=== PATIENT | male | born 2000 | race Caucasian/White ===

== ENCOUNTER → 2024-02-21 11:41 | Outpatient (BNVA) | payer OTHER, SELFPAY | DX: K21.9 Gastro-esophageal reflux disease without esophagitis (principal) | CPT/HCPCS: 80053; 86677 ==

== ENCOUNTER 2024-08-06 16:18 | Outpatient (CLI) | payer OTHER, SELFPAY ==
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
== END 2024-08-06 16:19 | disposition home or self-care (01) ==
DX: R10.31 Right lower quadrant pain (principal); K21.9 Gastro-esophageal reflux disease without esophagitis; F41.9 Anxiety disorder, unspecified
CPT/HCPCS: 74018

== ENCOUNTER 2025-03-06 21:21 | Emergency (ER) | payer OTHER, SELFPAY ==
[2025-03-06 21:25] VITALS: BP 132/81; PULSE 68; RESP 16; TEMP 36.6; O2SAT 100; BMI 21.9
--- OUTSIDE RECORDS SUMMARY | 2025-03-06 21:34 | XMS_ITS | Encounter Summary ---
Author Organization [facility] Address [address] [place] [address] Care Team Providers Care Clothing Supervisor Name Role Phone Aleks Musa MD Primary Care Provider Un available Encounter Details Date Type Department Care Team (Latest Contact Info) Description 01/27/2002 Outpatient Historical [facility] [address] [place] [phone] Rosalinda Villarreal MD NO ADDRESS ON FILE CROUP (Primary Dx); IMPACTED CERUMEN Social History Tobacco Use Types Packs/Day Years Used Date Smoking Tobacco: Never Assessed Sex and Gender Information Value Date Recorded Sex Assigned at Not on file Legal 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
--- OUTSIDE RECORDS SUMMARY | 2025-03-06 21:35 | XMS_ITS | Encounter Summary ---
Author Organization [facility] Address [address] [place] [address] Care Team Providers Care Production Shift Supervisor Name Role Phone Aleks Musa MD Primary Care Provider Un available Encounter Details Date Type Department Care Team (Latest Contact Info) Description 05/03/2004 Outpatient Historical [facility], N[facility] [address] [place] 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
--- OUTSIDE RECORDS SUMMARY | 2025-03-06 21:35 | XMS_ITS | Encounter Summary ---
Author Organization [facility] Address [address] [place] [address] Care Team Providers Care Storage Facility Rental Clerk Name Role Phone Aleks Musa MD Primary Care Provider Un available Encounter Details Date Type Department Care Team (Latest Contact Info) Description 05/14/2003 Outpatient Historical [facility] [address] [place] [phone] Aleks Musa MD NO ADDRESS ON FILE OTITIS MEDIA NOS (Primary Dx) Social History Tobacco Use Types Packs/Day Years Used Date Smoking Tobacco: Never Assessed Sex and Gender Information Value Date Recorded Sex Assigned at Not on file 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
--- OUTSIDE RECORDS SUMMARY | 2025-03-06 21:35 | XMS_ITS | Encounter Summary ---
Author Organization [facility] Address [address] [place] [address] Care Team Providers Care Rehabilitation Teacher Name Role Phone Aleks Musa MD Primary Care Provider Un available Encounter Details Date Type Department Care Team (Latest Contact Info) Description 08/02/[address] Outpatient [address] 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
--- OUTSIDE RECORDS SUMMARY | 2025-03-06 21:35 | XMS_ITS | Encounter Summary ---
Author Organization [facility] Address [address] [place] [address] Care Team Providers Care Rotor Pilot Name Role Phone Aleks Musa MD Primary Care Provider Un available Encounter Details Date Type Department Care Team (Latest Contact Info) Description 08/04/2002 Outpatient Historical [facility] Imaging Services-[facility] [address] [place] [phone] Florentin Munoz MD NO ADDRESS ON FILE COUGH (Primary Dx) Social History Tobacco Use Types Packs/Day Years Used Date Smoking Tobacco: Never Assessed Sex and Gender Information Value Date Recorded Sex Assigned at Not on file Legal Sex Male 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
--- OUTSIDE RECORDS SUMMARY | 2025-03-06 21:35 | XMS_ITS | Encounter Summary ---
Author Organization [facility] Address [address] [place] [address] Care Team Providers Care Canvas Baster Name Role Phone Aleks Musa MD Primary Care Provider Un available Encounter Details Date Type Department Care Team (Latest Contact Info) Description 03/26/2003 Outpatient Historical 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
--- OUTSIDE RECORDS SUMMARY | 2025-03-06 21:35 | XMS_ITS | Encounter Summary ---
Author Organization [facility] Address [address] [place] [address] Care Team Providers Care Chemistry Teacher Name Role Phone Aleks Musa MD Primary Care Provider Un available Encounter Details Date Type Department Care Team (Latest Contact Info) Description 07/26/2002 Outpatient Historical [facility] Urgent Care[facility] [address] [place] [phone] Buddy Quintero MD NO ADDRESS ON FILE FEVER (Primary Dx) Social History Tobacco Use Types Packs/Day Years Used Date Smoking Tobacco: Never Assessed Sex and Gender Information Value Date Recorded Sex Assigned at Not on file 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
--- OUTSIDE RECORDS SUMMARY | 2025-03-06 21:35 | XMS_ITS | Encounter Summary ---
Author Organization [facility] Address [address] [place] [address] Care Team Providers Care Taxi Dancer Name Role Phone Aleks Musa MD Primary Care Provider Un available Encounter Details Date Type Department Care Team (Latest Contact Info) Description 12/08/2003 Outpatient Historical [facility] [address] [place] [phone] Aleks Musa MD NO ADDRESS ON FILE COUGH (Primary Dx); OTALGIA NOS Social History Tobacco Use Types Packs/Day Years Used Date Smoking Tobacco: Never Assessed Sex and Gender Information Value Date Recorded Sex Assigned at Not on file Legal 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
--- OUTSIDE RECORDS SUMMARY | 2025-03-06 21:35 | XMS_ITS | Encounter Summary ---
Author Organization [facility] Address [address] [place] [address] Care Team Providers Care Inspector Hairspring Truing Name Role Phone Aleks Musa MD Primary Care Provider Un available Encounter Details Date Type Department Care Team (Latest Contact Info) Description 2001 Outpatient Historical [facility] [address] [place] [phone] Aleks Musa MD NO ADDRESS ON FILE VACCINE FOR DTP (Primary Dx); VACCINE FOR STREP PNEUMONIAE; CONVULSIONS, OTHER ([facility]) Social History Tobacco Use Types Packs/Day Years Used Date Smoking Tobacco: Never Assessed Sex and Gender Information Value Date Recorded Sex Assigned at Not on file 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 Gender Identity Not on file Sexual Orientation Not on file documented as of this encounter Plan of Treatment Not on file documented as of this encounter Visit Diagnoses Diagnosis Need for prophylactic vaccination with combined [id number] (DTP) vaccine- Primary Need for prophylactic vaccination against Streptococcus pneumoniae (pneumococcus) Need for prophylactic vaccination against streptococcus pneumoniae (pneumococcus) Other convulsions documented in this encounter Care Teams Inspector Hairspring Truing Relationship Specialty Start Date End Date Aleks Musa MD NO ADDRESS ON FILE PCP - General 11/05/02 documented as of this encounter
--- OUTSIDE RECORDS SUMMARY | 2025-03-06 21:35 | XMS_ITS | Encounter Summary ---
Author Organization [facility] Address [address] [place] [address] Care Team Providers Care Associate Professor Of Education Name Role Phone Aleks Musa MD Primary Care Provider Un available Encounter Details Date Type Department Care Team (Latest Contact Info) Description 01/28/2005 Outpatient Historical [facility] Ear, Nose and Throat [address] [place] 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
--- OUTSIDE RECORDS SUMMARY | 2025-03-06 21:35 | XMS_ITS | Encounter Summary ---
Author Organization [facility] Address [address] [place] [address] Care Team Providers Care Culinary Arts Instructor Name Role Phone Aleks Musa MD Primary Care Provider Un available Encounter Details Date Type Department Care Team (Latest Contact Info) Description 2001 Outpatient Historical [facility] [address] [place] [phone] Florentin Munoz MD NO ADDRESS ON FILE OTITIS MEDIA NOS (Primary Dx) Social History Tobacco Use Types Packs/Day Years Used Date Smoking Tobacco: Never Assessed Sex and Gender Information Value Date Recorded Sex Assigned at Not on file Legal 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
--- OUTSIDE RECORDS SUMMARY | 2025-03-06 21:35 | XMS_ITS | Encounter Summary ---
Author Organization [facility] Address [address] [place] [address] Care Team Providers Care Accounts Payable Analyst Name Role Phone Aleks Musa MD Primary Care Provider Un available Encounter Details Date Type Department Care Team (Latest Contact Info) Description 05/07/2004 Outpatient Historical [facility] [address] [place] [phone] Aleks Musa MD NO ADDRESS ON FILE PNEUMONIA, ORGANISM NOS (Primary Dx) Social History Tobacco Use Types Packs/Day Years Used Date Smoking Tobacco: Never Assessed Sex and Gender Information Value Date Recorded Sex Assigned at Not on file Legal Sex Male 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
--- OUTSIDE RECORDS SUMMARY | 2025-03-06 21:35 | XMS_ITS | Encounter Summary ---
Author Organization [facility] Address [address] [place] [address] Care Team Providers Care Social Services Counselor Name Role Phone Aleks Musa MD Primary Care Provider Un available Encounter Details Date Type Department Care Team (Latest Contact Info) Description [address] [facility] [address] [place] [phone] Aleks Musa MD NO ADDRESS ON FILE VACCINE FOR DTP (Primary Dx); VACCINE FOR DISEASE NEC; Vaccine for poliomyelitis Social History Tobacco Use Types Packs/Day Years Used Date Smoking Tobacco: Never Assessed Sex and Gender Information Value Date Recorded Sex Assigned at Not on file Legal Sex Male 4:40 AM ALLIED HEALTH PROFESSIONAL Gender Identity Not on file Sexual Orientation Not on file documented as of this encounter Plan of Treatment Not on file documented as of this encounter Visit Diagnoses Diagnosis Need for prophylactic vaccination with combined [id number]-[id number] (DTP) vaccine- Primary Need for prophylactic vaccination and inoculation against other specified disease Vaccine for poliomyelitis Need for prophylactic vaccination and inoculation against poliomyelitis documented in this encounter Care Teams Social Services Counselor Relationship Specialty Start Date End Date Aleks Musa MD NO ADDRESS ON FILE PCP - General 11/05/02 documented as of this encounter
--- OUTSIDE RECORDS SUMMARY | 2025-03-06 21:35 | XMS_ITS | Encounter Summary ---
Author Organization 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
--- OUTSIDE RECORDS SUMMARY | 2025-03-06 21:35 | XMS_ITS | Encounter Summary ---
Author Organization [facility] Address [address] [place] [address] Care Team Providers Care Parcel Post Clerk Name Role Phone Aleks Musa MD Primary Care Provider Un available Encounter Details Date Type Department Care Team (Latest Contact Info) Description 02/20/2004 Outpatient Historical [facility] [address] [place] [phone] Aleks Musa MD NO ADDRESS ON FILE Routine child health exam (Primary Dx) Social History Tobacco Use Types Packs/Day Years Used Date Smoking Tobacco: Never Assessed Sex and Gender Information Value Date Recorded Sex Assigned at Not on file Legal Sex Male 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
--- OUTSIDE RECORDS SUMMARY | 2025-03-06 21:35 | XMS_ITS | Encounter Summary ---
Author Organization [facility] Address [address] [place] [address] Care Team Providers Care Cytology Laboratory Manager Name Role Phone Aleks Musa MD Primary Care Provider Un available Encounter Details Date Type Department Care Team (Latest Contact Info) Description 2001 Outpatient Historical 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
--- OUTSIDE RECORDS SUMMARY | 2025-03-06 21:35 | XMS_ITS | Encounter Summary ---
Author Organization [facility] Address [address] [place] [address] Care Team Providers Care Park Guard Name Role Phone Aleks Musa MD Primary Care Provider Un available Encounter Details Date Type Department Care Team (Latest Contact Info) Description 02/23/2005 Outpatient Historical [facility] [address] [place] [phone] Aleks Musa MD NO ADDRESS ON FILE Routine child health exam (Primary Dx) Social History Tobacco Use Types Packs/Day Years Used Date Smoking Tobacco: Never Assessed Sex and Gender Information Value Date Recorded Sex Assigned at Not on file Legal Sex Male 4:40 AM RADARMAN Gender Identity Not on file Sexual Orientation Not on file documented as of this encounter Plan of Treatment Not on file documented as of this encounter Visit Diagnoses Diagnosis Routine child health exam- Primary Routine or child health check documented in this encounter Care Teams Park Guard Relationship Specialty Start Date End Date Aleks Musa MD NO ADDRESS ON FILE PCP - General 11/05/02 documented as of this encounter
--- OUTSIDE RECORDS SUMMARY | 2025-03-06 21:35 | XMS_ITS | Encounter Summary ---
Author Organization [facility] Address [address] [place] [address] Care Team Providers Care Licensed Therapist Name Role Phone Aleks Musa MD Primary Care Provider Un available Encounter Details Date Type Department Care Team (Latest Contact Info) Description 01/14/2002 Outpatient Historical [facility] [address] [place] [phone] Aleks Musa MD NO ADDRESS ON FILE OTITIS MEDIA NOS (Primary Dx) Social History Tobacco Use Types Packs/Day Years Used Date Smoking Tobacco: Never Assessed Sex and Gender Information Value Date Recorded Sex Assigned at Not on file Legal 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
--- OUTSIDE RECORDS SUMMARY | 2025-03-06 21:35 | XMS_ITS | Encounter Summary ---
Author Organization [facility] Address [address] [place] [address] Care Team Providers Care Die Turner Name Role Phone Aleks Musa MD Primary Care Provider Un available Encounter Details Date Type Department Care Team (Latest Contact Info) Description 05/19/2004 Outpatient Historical [facility] [address] [place] [phone] Aleks Musa MD NO ADDRESS ON FILE BRONCHITIS NOS (Primary Dx); ACUTE PHARYNGITIS Social History Tobacco Use Types Packs/Day Years Used Date Smoking Tobacco: Never Assessed Sex and Gender Information Value Date Recorded Sex Assigned at Not on file Legal Sex Male 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
--- OUTSIDE RECORDS SUMMARY | 2025-03-06 21:35 | XMS_ITS | Encounter Summary ---
Author Organization [facility] Address [address] [place] [address] Care Team Providers Care Residential Living Assistant Name Role Phone Aleks Musa MD Primary Care Provider Un available Encounter Details Date Type Department Care Team (Latest Contact Info) Description 2001 Outpatient Historical [facility] [address] [place] [phone] Aleks Musa MD NO ADDRESS ON FILE WHOOPING COUGH NOS (Primary Dx); CONVULSIONS, OTHER ([facility]) Social History Tobacco Use Types Packs/Day Years Used Date Smoking Tobacco: Never Assessed Sex and Gender Information Value Date Recorded Sex Assigned at Not on file Legal Sex Male 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
--- OUTSIDE RECORDS SUMMARY | 2025-03-06 21:35 | XMS_ITS | Encounter Summary ---
Author Organization [facility] Address [address] [place] [address] Care Team Providers Care Golf Club Head Inspector Name Role Phone Aleks Musa MD Primary Care Provider Un available Encounter Details Date Type Department Care Team (Latest Contact Info) Description 10/21/2003 Outpatient Historical [facility] Th[facility] [address] [place] [address] [place] [phone] Clovis Sidhu MD NO ADDRESS ON FILE Dysfunct eustachian tube (Primary Dx) Social History Tobacco Use Types Packs/Day Years Used Date Smoking Tobacco: Never Assessed Sex and Gender Information Value Date Recorded Sex Assigned at Not on file Legal Sex Male 4:40 AM UTILIZATION SPECIALIST Gender Identity Not on file Sexual Orientation Not on file documented as of this encounter Plan of Treatment Not on file documented as of this encounter Visit Diagnoses Diagnosis Dysfunct eustachian tube- Primary Dysfunction of Eustachian tube documented in this encounter Care Teams Golf Club Head Inspector Relationship Specialty Start Date End Date Aleks Musa MD NO ADDRESS ON FILE PCP - General 11/05/02 documented as of this encounter
--- OUTSIDE RECORDS SUMMARY | 2025-03-06 21:35 | XMS_ITS | Encounter Summary ---
Author Organization [facility] Address [address] [place] [address] Care Team Providers Care Counter Attendant Name Role Phone Aleks Musa MD Primary Care Provider Un available Encounter Details Date Type Department Care Team (Latest Contact Info) Description 07/18/2003 Outpatient Historical [facility] Op[facility] [address] [place] [address] Morris Davila MD [address] [place] [address] Accommodative esotropia (Primary Dx) Social History Tobacco Use Types Packs/Day Years Used Date Smoking Tobacco: Never Assessed Sex and Gender Information Value Date Recorded Sex Assigned at Not on file Legal Sex Male 4:40 AM LICENSED PLUMBER Gender Identity Not on file Sexual Orientation Not on file documented as of this encounter Plan of Treatment Not on file documented as of this encounter Visit Diagnoses Diagnosis Accommodative esotropia- Primary Accommodative component in esotropia documented in this encounter Care Teams Counter Attendant Relationship Specialty Start Date End Date Aleks Musa MD NO ADDRESS ON FILE PCP - General 11/05/02 documented as of this encounter
--- OUTSIDE RECORDS SUMMARY | 2025-03-06 21:35 | XMS_ITS | Encounter Summary ---
Author Organization [facility] Address [address] [place] [address] Care Team Providers Care Political Research Scientist Name Role Phone Aleks Musa MD Primary Care Provider Un available Encounter Details Date Type Department Care Team (Latest Contact Info) Description 08/25/2004 Outpatient Historical [facility] [address] [place] [phone] Nitin Ferrell MD NO ADDRESS ON FILE UNSPECIFIED VIRAL INFECTION (Primary Dx) Social History Tobacco Use Types Packs/Day Years Used Date Smoking Tobacco: Never Assessed Sex and Gender Information Value Date Recorded Sex Assigned at Not on file Legal Sex Male 4:40 AM DIGITAL ACCOUNT MANAGER Gender Identity Not on file Sexual Orientation Not on file documented as of this encounter Plan of Treatment Not on file documented as of this encounter Visit Diagnoses Diagnosis Unspecified viral infection, in conditions classified elsewhere and of unspecified site- Primary documented in this encounter Care Teams Political Research Scientist Relationship Specialty Start Date End Date Aleks Musa MD NO ADDRESS ON FILE PCP - General 11/05/02 documented as of this encounter
--- OUTSIDE RECORDS SUMMARY | 2025-03-06 21:35 | XMS_ITS | Encounter Summary ---
Author Organization [facility] Address [address] [place] [address] Care Team Providers Care Chain Repairer Name Role Phone Aleks Musa MD Primary Care Provider Un available Encounter Details Date Type Department Care Team (Latest Contact Info) Description 2001 Outpatient Historical [facility] [address] [place] [phone] Abhijit Obrien MD NO ADDRESS ON FILE ACUTE BRONCHIOLITIS/RESP SYNC VIRUS (Primary Dx) Social History Tobacco Use Types Packs/Day Years Used Date Smoking Tobacco: Never Assessed Sex and Gender Information Value Date Recorded Sex Assigned at Not on file Legal Sex Male 4:40 AM MANAGER BUDGET Gender Identity Not on file Sexual Orientation Not on file documented as of this encounter Plan of Treatment Not on file documented as of this encounter Visit Diagnoses Diagnosis Acute bronchiolitis due to respiratory syncytial virus (RSV)- Primary documented in this encounter Care Teams Chain Repairer Relationship Specialty Start Date End Date Aleks Musa MD NO ADDRESS ON FILE PCP - General 11/05/02 documented as of this encounter
--- OUTSIDE RECORDS SUMMARY | 2025-03-06 21:35 | XMS_ITS | Encounter Summary ---
Author Organization [facility] Address [address] [facility] Attn: Epic Prelude ADT [place] [phone] Care Team Providers Care Junior Underwriter Name Role Phone Aleks Musa MD Primary Care Provider Un available Encounter Details Date Type Department Care Team (Late st Contact Info) Description 2001 Inpatient Historical Aleks Musa MD NO ADDRESS ON FILE Social History Tobacco Use Types Packs/Day Years Used Date Smoking Tobacco: Never Assessed Sex and Gender Information Value Date Recorded Sex Assigned at Not on file Legal Sex Male 4:40 AM RAP ARTIST Gender Identity Not on file Sexual Orientation Not on file documented as of this encounter Plan of Treatment Not on file documented as of this encounter Visit Diagnoses Not on filedocumented in this encounter Care Teams Junior Underwriter Relationship Specialty Start Date End Date Aleks Musa MD NO ADDRESS ON FILE PCP - General 11/05/02 documented as of this encounter
--- OUTSIDE RECORDS SUMMARY | 2025-03-06 21:35 | XMS_ITS | Encounter Summary ---
Author Organization [facility] Address [address] [facility] Attn: Epic Prelude ADT [place] [address] Care Team Providers Care Assembler Utility Buildings Name Role Phone Aleks Musa MD Primary Care Provider Un available Encounter Details Date Type Department Care Team (Late st Contact Info) Description 2001 Outpatient Historical Aleks Musa MD NO ADDRESS ON FILE Social History Tobacco Use Types Packs/Day Years Used Date Smoking Tobacco: Never Assessed Sex and Gender Information Value Date Recorded Sex Assigned at Not on file Legal Sex Male 4:40 AM COAL CAGER Gender Identity Not on file Sexual Orientation Not on file documented as of this encounter Plan of Treatment Not on file documented as of this encounter Visit Diagnoses Not on filedocumented in this encounter Care Teams Assembler Utility Buildings Relationship Specialty Start Date End Date Aleks Musa MD NO ADDRESS ON FILE PCP - General 11/05/02 documented as of this encounter
--- OUTSIDE RECORDS SUMMARY | 2025-03-06 21:35 | XMS_ITS | Encounter Summary ---
Author Organization [facility] Address [address] [place] [address] Care Team Providers Care Plant Pathology Teacher Name Role Phone Aleks Musa MD Primary Care Provider Un available Encounter Details Date Type Department Care Team (Late st Contact Info) Description 01/28/2005 Outpatient Historical [facility] Ear, Nose and Throat [address] [place] [phone] Social History Tobacco Use Types Packs/Day Years Used Date Smoking Tobacco: Never Assessed Sex and Gender Information Value Date Recorded Sex Assigned at Not on file Legal Sex Male 4:40 AM STEEL GRINDER Gender Identity Not on file Sexual Orientation Not on file documented as of this encounter Plan of Treatment Not on file documented as of this encounter Visit Diagnoses Not on filedocumented in this encounter Care Teams Plant Pathology Teacher Relationship Specialty Start Date End Date Aleks Musa MD NO ADDRESS ON FILE PCP - General 11/05/02 documented as of this encounter
--- OUTSIDE RECORDS SUMMARY | 2025-03-06 21:35 | XMS_ITS | Encounter Summary ---
Author Organization [facility] Address [address] [place] [address] Care Team Providers Care Setter Cold Rolling Machine Name Role Phone Aleks Musa MD Primary Care Provider Un available Encounter Details Date Type Department Care Team (Latest Contact Info) Description 2001 Outpatient Historical [facility] [address] [place] [phone] Aleks Musa MD NO ADDRESS ON FILE VACCINE FOR DTP (Primary Dx); VACCINE FOR DISEASE NEC; Vaccine for poliomyelitis Social History Tobacco Use Types Packs/Day Years Used Date Smoking Tobacco: Never Assessed Sex and Gender Information Value Date Recorded Sex Assigned at Not on file Legal Sex Male 4:40 AM CLINICAL SYSTEMS ANALYST Gender Identity Not on file Sexual Orientation Not on file documented as of this encounter Plan of Treatment Not on file documented as of this encounter Visit Diagnoses Diagnosis Need for prophylactic vaccination with combined [id number] (DTP) vaccine- Primary Need for prophylactic vaccination and inoculation against other specified disease Vaccine for poliomyelitis Need for prophylactic vaccination and inoculation against poliomyelitis documented in this encounter Care Teams Setter Cold Rolling Machine Relationship Specialty Start Date End Date Aleks Musa MD NO ADDRESS ON FILE PCP - General 11/05/02 documented as of this encounter
--- OUTSIDE RECORDS SUMMARY | 2025-03-06 21:35 | XMS_ITS | Encounter Summary ---
Author Organization [facility] Address [address] [place] [address] Care Team Providers Care Tracer Lathe Set Up Operator Name Role Phone Aleks Musa MD Primary Care Provider Un available Encounter Details Date Type Department Care Team (Latest Contact Info) Description 04/22/2003 Outpatient Historical [facility] Ear, Nose and Throat [address] [place] [address] [place] [phone] Clovis Sidhu MD NO ADDRESS ON FILE Dysfunct eustachian tube (Primary Dx) Social History Tobacco Use Types Packs/Day Years Used Date Smoking Tobacco: Never Assessed Sex and Gender Information Value Date Recorded Sex Assigned at Not on file Legal Sex Male 4:40 AM CARPENTER APPRENTICE Gender Identity Not on file Sexual Orientation Not on file documented as of this encounter Plan of Treatment Not on file documented as of this encounter Visit Diagnoses Diagnosis Dysfunct eustachian tube- Primary Dysfunction of Eustachian tube documented in this encounter Care Teams Tracer Lathe Set Up Operator Relationship Specialty Start Date End Date Aleks Musa MD NO ADDRESS ON FILE PCP - General 11/05/02 documented as of this encounter
--- OUTSIDE RECORDS SUMMARY | 2025-03-06 21:35 | XMS_ITS | Encounter Summary ---
Author Organization [facility] Address [address] [place] [address] Care Team Providers Care Soil Sampler Name Role Phone Aleks Musa MD Primary Care Provider Un available Encounter Details Date Type Department Care Team (Latest Contact Info) Description 2001 Outpatient Historical [facility] [address] [place] [phone] Aleks Musa MD NO ADDRESS ON FILE WHOOPING COUGH NOS (Primary Dx); CONVULSIONS, OTHER ([facility] Social History Tobacco Use Types Packs/Day Years Used Date Smoking Tobacco: Never Assessed Sex and Gender Information Value Date Recorded Sex Assigned at Not on file Legal Sex Male 4:40 AM TALENT MANAGEMENT SPECIALIST Gender Identity Not on file Sexual Orientation Not on file documented as of this encounter Plan of Treatment Not on file documented as of this encounter Visit Diagnoses Diagnosis Whooping cough, unspecified organism- Primary Other convulsions documented in this encounter Care Teams Soil Sampler Relationship Specialty Start Date End Date Aleks Musa MD NO ADDRESS ON FILE PCP - General 11/05/02 documented as of this encounter
--- OUTSIDE RECORDS SUMMARY | 2025-03-06 21:35 | XMS_ITS | Encounter Summary ---
Author Organization [facility] Address [address] [place] [address] Care Team Providers Care State Epidemiologist Name Role Phone Aleks Musa MD Primary Care Provider Un available Encounter Details Date Type Department Care Team (Latest Contact Info) Description 2001 Outpatient Historical [facility] [address] [place] [phone] Florentin Munoz MD NO ADDRESS ON FILE OTALGIA NOS (Primary Dx); VACCINE FOR DISEASE NEC Social History Tobacco Use Types Packs/Day Years Used Date Smoking Tobacco: Never Assessed Sex and Gender Information Value Date Recorded Sex Assigned at Not on file Legal Sex Male 4:40 AM PLASTIC SURGERY MANAGER Gender Identity Not on file Sexual Orientation Not on file documented as of this encounter Plan of Treatment Not on file documented as of this encounter Visit Diagnoses Diagnosis Otalgia, unspecified- Primary Need for prophylactic vaccination and inoculation against other specified disease documented in this encounter Care Teams State Epidemiologist Relationship Specialty Start Date End Date Aleks Musa MD NO ADDRESS ON FILE PCP - General 11/05/02 documented as of this encounter
--- OUTSIDE RECORDS SUMMARY | 2025-03-06 21:35 | XMS_ITS | Encounter Summary ---
Author Organization [facility] Address [address] [facility] Attn: Epic Prelude ADT [place] [address] Care Team Providers Care Tack Cutter Name Role Phone Aleks Musa MD Primary [...] on file Legal Sex Male 4:40 AM MANUFACTURING SUPPORT ENGINEER Gender Identity Not on file Sexual Orientation Not on file documented as of this encounter Plan of Treatment Not on file documented as of this encounter Visit Diagnoses Not on filedocumented in this encounter Care Teams Tack Cutter Relationship Specialty Start Date End Date Aleks Musa MD NO ADDRESS ON FILE PCP - General 11/05/02 documented as of this encounter
--- OUTSIDE RECORDS SUMMARY | 2025-03-06 21:35 | XMS_ITS | Encounter Summary ---
Author Organization [facility] Address [address] [place] [address] Care Team Providers Care Curriculum Designer Name Role Phone Aleks Musa MD Primary Care Provider Un available Encounter Details Date Type Department Care Team (Latest Contact Info) Description 05/20/2004 Outpatient Historical [facility] Ophthalmology [address] [place] [address] Morris Davila MD [address] [place] [address] Accommodative esotropia (Primary Dx) Social History Tobacco Use Types Packs/Day Years Used Date Smoking Tobacco: Never Assessed Sex and Gender Information Value Date Recorded Sex Assigned at Not on file Legal Sex Male 4:40 AM DIGITAL CONTENT PRODUCER Gender Identity Not on file Sexual Orientation Not on file documented as of this encounter Plan of Treatment Not on file documented as of this encounter Visit Diagnoses Diagnosis Accommodative esotropia- Primary Accommodative component in esotropia documented in this encounter Care Teams Curriculum Designer Relationship Specialty Start Date End Date Aleks Musa MD NO ADDRESS ON FILE PCP - General 11/05/02 documented as of this encounter
--- OUTSIDE RECORDS SUMMARY | 2025-03-06 21:35 | XMS_ITS | Encounter Summary ---
Author Organization [facility] Address [address] [place] [address] Care Team Providers Care Delivery Driver Assistant Name Role Phone Aleks Musa MD Primary Care Provider Un available Encounter Details Date Type Department Care Team (Latest Contact Info) Description 08/04/2002 Outpatient Historical [facility] Florentin Munoz MD NO ADDRESS ON FILE ACUTE URI NOS (Primary Dx) Social History Tobacco Use Types Packs/Day Years Used Date Smoking Tobacco: Never Assessed Sex and Gender Information Value Date Recorded Sex Assigned at Not on file Legal Sex Male 4:40 AM INFORMATION TECHNOLOGY ARCHITECT Gender Identity Not on file Sexual Orientation Not on file documented as of this encounter Plan of Treatment Not on file documented as of this encounter Visit Diagnoses Diagnosis Acute upper respiratory infections of unspecified site- Primary documented in this encounter Care Teams Delivery Driver Assistant Relationship Specialty Start Date End Date Aleks Musa MD NO ADDRESS ON FILE PCP - General 11/05/02 documented as of this encounter
--- OUTSIDE RECORDS SUMMARY | 2025-03-06 21:35 | XMS_ITS | Encounter Summary ---
Author Organization [facility] Address [address] [place] [address] Care Team Providers Care Sales And Production Manager Name Role Phone Aleks Musa MD Primary Care Provider Un available Encounter Details Date Type Department Care Team (Latest Contact Info) Description 2001 Outpatient Historical [facility] [address] [place] [phone] Aleks Musa MD NO ADDRESS ON FILE WHOOPING COUGH NOS (Primary Dx); CONVULSIONS, OTHER ([facility]) Social History Tobacco Use Types Packs/Day Years Used Date Smoking Tobacco: Never Assessed Sex and Gender Information Value Date Recorded Sex Assigned at Not on file Legal Sex Male 4:40 AM TOURIST INFORMATION OFFICER Gender Identity Not on file Sexual Orientation Not on file documented as of this encounter Plan of Treatment Not on file documented as of this encounter Visit Diagnoses Diagnosis Whooping cough, unspecified organism- Primary Other convulsions documented in this encounter Care Teams Sales And Production Manager Relationship Specialty Start Date End Date Aleks Musa MD NO ADDRESS ON FILE PCP - General 11/05/02 documented as of this encounter
--- OUTSIDE RECORDS SUMMARY | 2025-03-06 21:35 | XMS_ITS | Encounter Summary ---
Author Organization [facility] Address [address] [place] [address] Care Team Providers Care Pipeliner Name Role Phone Aleks Musa MD Primary Care Provider Un available Encounter Details Date Type Department Care Team (Latest Contact Info) Description 2001 Outpatient Historical [facility] [employer] [address] [place] [address] Abhijit Obrien MD NO ADDRESS ON FILE COUGH (Primary Dx) Social History Tobacco Use Types Packs/Day Years Used Date Smoking Tobacco: Never Assessed Sex and Gender Information Value Date Recorded Sex Assigned at Not on file Legal Sex Male 4:40 AM ETCHER PHOTOENGRAVING Gender Identity Not on file Sexual Orientation Not on file documented as of this encounter Plan of Treatment Not on file documented as of this encounter Visit Diagnoses Diagnosis Cough- Primary documented in this encounter Care Teams Pipeliner Relationship Specialty Start Date End Date Aleks Musa MD NO ADDRESS ON FILE PCP - General 11/05/02 documented as of this encounter
--- OUTSIDE RECORDS SUMMARY | 2025-03-06 21:35 | XMS_ITS | Encounter Summary ---
Author Organization [facility] Address [address] [place] [address] Care Team Providers Care Automation Clerk Name Role Phone Aleks Musa MD Primary Care Provider Un available Encounter Details Date Type Department Care Team (Latest Contact Info) Description 2001 Outpatient Historical [facility] Ulysses Dominguez [facility] [place], [place] [address] Acute nonsup otitis media (Primary Dx) Social History Tobacco Use Types Packs/Day Years Used Date Smoking Tobacco: Never Assessed Sex and Gender Information Value Date Recorded Sex Assigned at Not on file Legal Sex Male 4:40 AM PRODUCTION ILLUSTRATOR Gender Identity Not on file Sexual Orientation Not on file documented as of this encounter Plan of Treatment Not on file documented as of this encounter Visit Diagnoses Diagnosis Acute nonsup otitis media- Primary Acute nonsuppurative otitis media, unspecified documented in this encounter Care Teams Automation Clerk Relationship Specialty Start Date End Date Aleks Musa MD NO ADDRESS ON FILE PCP - General 11/05/02 documented as of this encounter
--- OUTSIDE RECORDS SUMMARY | 2025-03-06 21:35 | XMS_ITS | Encounter Summary ---
Author Organization [facility] Address [address] [place] [address] Care Team Providers Care Land Acquisition Specialist Name Role Phone Aleks Musa MD Primary Care Provider Un available Encounter Details Date Type Department Care Team (Latest Contact Info) Description 05/26/2003 Outpatient Historical [facility] Op[facility]mology [address] [place] [address] Morris Davila MD [address] [place] [address] HYPERMETROPIA (Primary Dx) Social History Tobacco Use Types Packs/Day Years Used Date Smoking Tobacco: Never Assessed Sex and Gender Information Value Date Recorded Sex Assigned at Not on file Legal Sex Male 4:40 AM CHIEF INVESTMENT OFFICER Gender Identity Not on file Sexual Orientation Not on file documented as of this encounter Plan of Treatment Not on file documented as of this encounter Visit Diagnoses Diagnosis Hypermetropia- Primary documented in this encounter Care Teams Land Acquisition Specialist Relationship Specialty Start Date End Date Aleks Musa MD NO ADDRESS ON FILE PCP - General 11/05/02 documented as of this encounter
--- OUTSIDE RECORDS SUMMARY | 2025-03-06 21:35 | XMS_ITS | Encounter Summary ---
Author Organization [facility] Address [address] [place] [address] Care Team Providers Care Resident Care Spec Name Role Phone Aleks Musa MD Primary Care Provider Un available Encounter Details Date Type Department Care Team (Latest Contact Info) Description 03/07/2005 Outpatient Historical [facility] [address] [place] [phone] Aleks Musa MD NO ADDRESS ON FILE CROUP (Primary Dx) Social History Tobacco Use Types Packs/Day Years Used Date Smoking Tobacco: Never Assessed Sex and Gender Information Value Date Recorded Sex Assigned at Not on file Legal Sex Male 4:40 AM HOSE FINISHER Gender Identity Not on file Sexual Orientation Not on file documented as of this encounter Plan of Treatment Not on file documented as of this encounter Visit Diagnoses Diagnosis Croup- Primary documented in this encounter Care Teams Resident Care Spec Relationship Specialty Start Date End Date Aleks Musa MD NO ADDRESS ON FILE PCP - General 11/05/02 documented as of this encounter
--- OUTSIDE RECORDS SUMMARY | 2025-03-06 21:35 | XMS_ITS | Encounter Summary ---
Author Organization [facility] Address [address] [place] [address] Care Team Providers Care Career Development Counselor Name Role Phone Aleks Musa MD Primary Care Provider Un available Encounter Details Date Type Department Care Team (Latest Contact Info) Description 06/15/2003 Outpatient Historical [facility] [address] [place] [phone] Latha Forde MD NO ADDRESS ON FILE ACUTE PHARYNGITIS (Primary Dx) Social History Tobacco Use Types Packs/Day Years Used Date Smoking Tobacco: Never Assessed Sex and Gender Information Value Date Recorded Sex Assigned at Not on file Legal Sex Male 4:40 AM CONTRACTING MANAGER Gender Identity Not on file Sexual Orientation Not on file documented as of this encounter Plan of Treatment Not on file documented as of this encounter Visit Diagnoses Diagnosis Acute pharyngitis- Primary documented in this encounter Care Teams Career Development Counselor Relationship Specialty Start Date End Date Aleks Musa MD NO ADDRESS ON FILE PCP - General 11/05/02 documented as of this encounter
--- OUTSIDE RECORDS SUMMARY | 2025-03-06 21:35 | XMS_ITS | Encounter Summary ---
Author Organization [facility] Address [address] [place] [address] Care Team Providers Care Client Partner Name Role Phone Aleks Musa MD Primary Care Provider Un available Encounter Details Date Type Department Care Team (Latest Contact Info) Description 01/04/2002 Outpatient Historical [facility] [address] [place] [phone] Florentin Munoz MD NO ADDRESS ON FILE OTITIS MEDIA NOS (Primary Dx) Social History Tobacco Use Types Packs/Day Years Used Date Smoking Tobacco: Never Assessed Sex and Gender Information Value Date Recorded Sex Assigned at Not on file Legal Sex Male 4:40 AM POWER AND RECOVERY SUPERVISOR Gender Identity Not on file Sexual Orientation Not on file documented as of this encounter Plan of Treatment Not on file documented as of this encounter Visit Diagnoses Diagnosis Unspecified otitis media- Primary documented in this encounter Care Teams Client Partner Relationship Specialty Start Date End Date Aleks Musa MD NO ADDRESS ON FILE PCP - General 11/05/02 documented as of this encounter
--- OUTSIDE RECORDS SUMMARY | 2025-03-06 21:35 | XMS_ITS | Encounter Summary ---
Author Organization [facility] Address [address] [place] [address] Care Team Providers Care Transfer Man Name Role Phone Aleks Musa MD Primary Care Provider Un available Encounter Details Date Type Department Care Team (Latest Contact Info) Description 2001 Outpatient Historical [facility] [address] [place] [phone] Aleks Musa MD NO ADDRESS ON FILE ACUTE URI NOS (Primary Dx) Social History Tobacco Use Types Packs/Day Years Used Date Smoking Tobacco: Never Assessed Sex and Gender Information Value Date Recorded Sex Assigned at Not on file 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
--- OUTSIDE RECORDS SUMMARY | 2025-03-06 21:35 | XMS_ITS | Encounter Summary ---
Author Organization [facility] Address [address] [place] [address] Care Team Providers Care Broth Setter Name Role Phone Aleks Musa MD Primary Care Provider Un available Encounter Details Date Type Department Care Team (Latest Contact Info) Description 09/13/2003 Outpatient Historical [facility] Ulysses Dominguez [facility] [place], [place] [id number] DYSURIA (Primary Dx) Social History Tobacco Use Types Packs/Day Years Used Date Smoking Tobacco: Never Assessed Sex and Gender Information Value Date Recorded Sex Assigned at Not on file 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
--- OUTSIDE RECORDS SUMMARY | 2025-03-06 21:36 | XMS_ITS | Encounter Summary ---
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
--- OUTSIDE RECORDS SUMMARY | 2025-03-06 21:36 | XMS_ITS | Encounter Summary ---
Author Organization [facility] Address [address] [place] [address] Care Team Providers Care Natural Gas Technician Name Role Phone Aleks Musa MD Primary Care Provider Un available Encounter Details Date Type Department Care Team (Latest Contact Info) Description 04/10/2002 Outpatient Historical [facility] [address] [place] [phone] Aleks Musa MD NO ADDRESS ON FILE OTITIS MEDIA NOS (Primary Dx) Social History Tobacco Use Types Packs/Day Years Used Date Smoking Tobacco: Never Assessed Sex and Gender Information Value Date Recorded Sex Assigned at Not on file 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
--- OUTSIDE RECORDS SUMMARY | 2025-03-06 21:36 | XMS_ITS | Encounter Summary ---
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
--- OUTSIDE RECORDS SUMMARY | 2025-03-06 21:36 | XMS_ITS | Encounter Summary ---
Author Organization [facility] Address [address] [place] [address] Care Team Providers Care Medical Corps Officer Name Role Phone Aleks Musa MD Primary Care Provider Un available Encounter Details Date Type Department Care Team (Latest Contact Info) Description 02/02/2007 Outpatient Historical [facility] Nose and Throat 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
--- OUTSIDE RECORDS SUMMARY | 2025-03-06 21:36 | XMS_ITS | Encounter Summary ---
Author Organization [facility] Address [address] [place] [address] Care Team Providers Care Dye House Wheel Operator Name Role Phone Aleks Musa MD Primary Care Provider Un available Encounter Details Date Type Department Care Team (Latest Contact Info) Description 05/25/2002 Outpatient Historical [facility] [address] [place] [phone] Abhijit Obrien MD NO ADDRESS ON FILE ACUTE PHARYNGITIS (Primary Dx) Social History Tobacco Use Types Packs/Day Years Used Date Smoking Tobacco: Never Assessed Sex and Gender Information Value Date Recorded Sex Assigned at Not on file 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
--- OUTSIDE RECORDS SUMMARY | 2025-03-06 21:36 | XMS_ITS | Encounter Summary ---
Author Organization [facility] Address [address] [place] [address] Care Team Providers Care Check Weigher Name Role Phone Aleks Musa MD Primary Care Provider Un available Encounter Details Date Type Department Care Team (Latest Contact Info) Description 06/06/2006 Outpatient Historical [facility] 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
--- OUTSIDE RECORDS SUMMARY | 2025-03-06 21:36 | XMS_ITS | Clinical Summary ---
Author Organization [facility] Address [address] [place] [address] Care Team Providers Care Neurology Tech Name Role Phone Aleks Musa MD Primary Care Provider Un available Allergies Active Allergy Reactions Criticality Noted Date Comments Azithromycin Hives High 04/06/2009 Cefprozil Hives High 05/04/2009 Doxycycline Other (See Comments) 08/19/2014 Ulcers to inside stomach and esophagus, mouth Penicillin G Hives High 05/04/2009 Sulfa (Sulfonamide Antibiotics) Hives High 05/04/2009 Unclassified Drug Other (See Comments) 12/08/19 09 Ask mom to list. There are too many Medications ACETAMINOPHEN (TYLENOL PO) Take by mouth. Active CETIRIZINE HCL (ZYRTEC ORAL) Take by mouth. Active RANITIDINE HCL (ZANTAC ORAL) Take by mouth. Daily Active MULTIVITAMIN ORAL Take by mouth. 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 to cephalosporin 09/30/2015 FH: hypercholesterolemia 08/19/2014 Dysfunction of eustachian tube 02/08/2010 Resolved Problems Problem Noted Date Diagnosed Date Resolved Date Personal history of allergy to other antibiotic agent 04/06/2009 09/30/2015 Immunizations Immunization Administration Dates Next Due (ADACEL/BOOSTRIX)(10 YR UP) TDAP VACCINE, 0.5ML, IM 09/26/2013 (GARDASIL)(9-45 YRS) HUMAN PAPILLOMAVIRUS VACCINE, TYPES 6, 11, 16, 18, QUADRIVALENT (4VHPV), 3 DOSE, IM 09/30/2015,08/19/2014,09/26/2013 (HAVRIX/VAQTA)(12 MO-18 YRS) HEPATITIS A VACCINE 0.5 ML PED/ADOL 2 DOSE, IM 09/02/2011,09/24/2010 (M-M-R II/PRIORIX)(12 MO UP) MEASLES, MUMPS AND RUBELLA VIRUS VACCINE, 0.5 ML IM/SUBCUT 10/06/2006,02/18/2002 (VARIVAX)(12 MOS UP)VARICELL A VIRUS VACCINE (PF) 0.5 ML, SUB CUT 10/06/2006,02/18/2002 Dt Dtp Dtap Vaccine 10/06/2006, 3,2001,06/18,2001 HIB, Unspecified Formulation 02/18/2002,06/19/19 02,2001 Hepatitis B Vaccine 02/18/2002, 2,2001,02/14 IPV/OPV 10/06/2006, 3,2001,04/16 Influenza Seasonal Unspecifi ed Formulation IM 01/18/2008,01/17/2007,01/17/2006,12/30,01/27/2003 Influenza Vaccine Split 3+ Yrs IM 12/20/2010 Meningococcal A Conjugate Vaccine IM 09/18/2012 Pneumococcal 7-valent conjug ate vaccine IM 2001,2001,2001 Family History Medical History Relation Name Comments High Cholesterol Brother Heart Disease Father High Cholesterol Father Relation Name Status Comments Brother Father Social History Tobacco Use Types Packs/Day Years Used Date Smoking Tobacco: Never Sex and Gender Information Value Date Recorded Sex Assigned at Not on file 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 Gender Identity Not on file Sexual Orientation Not on file Last Filed Vital Signs Vital Sign Reading Time Taken Comments Blood Pressure 118/70 10/04/2018 4:04 PM CDT Pulse 68 10/04/2018 4:04 PM CDT Temperature 36.6 C (97.8 F) 11/19/2014 9:10 AM CDT Respiratory Rate 18 11/19/2014 9:10 AM CDT Oxygen Saturation 100% 11/19/2014 9:10 AM CDT Inhaled Oxygen Concentration - - Weight 58.7 kg (129 lb 6 oz) 10/04/2018 4:04 PM CDT Height 167.6 cm (5' 6 ) 10/04/2018 4:04 PM CDT Body Mass Index 20.88 10/04/2018 4:04 PM CDT Plan of Treatment Health Maintenance Due Date Last Done Comments DTAP/TDAP/TD VACCINES (7 - T d or Tdap) 09/27/2023 09/26/2013, 10/06/2006, 08/30/2002, Additional history exists INFLUENZA VACCINE (#1) 2024 , 01/18/2008, 01/17/2007, Additional history exists HEPATITIS B VACCINES Completed 02/18/2002, 2001, 2001, Additional history exists HPV VACCINES Completed 09/30/2015, 04/2014, 09/26/2013 Insurance [facility] Care Teams Neurology Tech Relationship Specialty Start Date End Date Aleks Musa MD NO ADDRESS ON FILE PCP - General 11/05/02
--- OUTSIDE RECORDS SUMMARY | 2025-03-06 21:36 | XMS_ITS | Encounter Summary ---
Author Organization [facility] Address [address] [place] [address] Care Team Providers Care Network Operations Center Engineer Name Role Phone Unavailable Primary Care Provider Unavailabl e Encounter Details Date Type Department Care Team (Late st Contact Info) Description 03/04/2025 External Device Data STL ABSTRACTION Provider, Abstract NO ADDRESS ON FILE Social History Tobacco Use Types Packs/Day Years Used Date Smoking Tobacco: Never Smokeless Tobacco: Current Chew Alcohol Use Standard Drinks/Week Comments Yes 0 (1 standard drink = 0.6 oz pur e alcohol) occ Sex and Gender Information Value Date Recorded Sex Assigned at Not on file Legal Sex Male 9:24 AM 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 TEACHER Gender Identity Not on file Sexual Orientation Not on file documented as of this encounter Plan of Treatment Upcoming Encounters Date Type Department Care Team (Latest Contact Info) Description 04/22/2025 9:00 AM 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 TEACHER Hospital Encounter [facility] [place] [address] [place] [address] Sarahy Escobar DO [address] [facility] [address] [place] [address] 04/22/2025 9:00 AM 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 TEACHER - 04/22/2025 9:20 AM 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 TEACHER Surgery [facility] [address] [place] [address] Lucy EstevezSarahy [address] [place] [address] ESOPHAGOGASTRODUODENOSCOPY Scheduled Procedures Name Priority Associated Diagnoses Date/Ti me ESOPHAGOGASTRODUODENOSCOPY Heartburn Regurgitation of stomach contents 04/22/2025 9:00 AM 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 TEACHER PH STUDY 48 HOUR Heartburn Regurgitation of stomach contents 04/22/2025 9:00 AM 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 TEACHER documented as of this encounter Goals Goal Patient Goal Type Associated Problems Recent Progress Patient-Stated? Author Autogenerat ed Goal Care Plan Autogenerated Problem No Aisha Engel documented as of this encounter Visit Diagnoses Not on filedocumented in this encounter Additional Health Concerns Active Problems Noted Date Diagnosed Date Autogenerated Problem 01/01/2025 documented as of this encounter
--- OUTSIDE RECORDS SUMMARY | 2025-03-06 21:36 | XMS_ITS | Encounter Summary ---
Author Organization [facility] Address [address] [place] [address] Care Team Providers Care Label Paster Name Role Phone Aleks Musa MD Primary Care Provider Un available Encounter Details Date Type Department Care Team (Latest Contact Info) Description 02/24/2003 Outpatient Historical [facility] [address] [place] [phone] Buddy Quintero MD NO ADDRESS ON FILE ACUTE PHARYNGITIS (Primary Dx) Social History Tobacco Use Types Packs/Day Years Used Date Smoking Tobacco: Never Assessed Sex and Gender Information Value Date Recorded Sex Assigned at Not on file Legal Sex Male 4:40 AM PEDIATRIC NP Gender Identity Not on file Sexual Orientation Not on file documented as of this encounter Plan of Treatment Not on file documented as of this encounter Visit Diagnoses Diagnosis Acute pharyngitis- Primary documented in this encounter Care Teams Label Paster Relationship Specialty Start Date End Date Aleks Musa MD NO ADDRESS ON FILE PCP - General 11/05/02 documented as of this encounter
--- OUTSIDE RECORDS SUMMARY | 2025-03-06 21:36 | XMS_ITS | Encounter Summary ---
Author Organization [facility] Address [address] [place] [address] Care Team Providers Care Stock Worker Name Role Phone Aleks Musa MD Primary Care Provider Un available Encounter Details Date Type Department Care Team (Latest Contact Info) Description 2001 Outpatient Historical [facility] [address] [place] [phone] Aleks Musa MD NO ADDRESS ON FILE ACUTE URI NOS (Primary Dx) Social History Tobacco Use Types Packs/Day Years Used Date Smoking Tobacco: Never Assessed Sex and Gender Information Value Date Recorded Sex Assigned at Not on file Legal 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
--- OUTSIDE RECORDS SUMMARY | 2025-03-06 21:36 | XMS_ITS | Encounter Summary ---
Author Organization [facility] Address [address] [place] [address] Care Team Providers Care Glue Cook Name Role Phone Aleks Musa MD Primary Care Provider Un available Encounter Details Date Type Department Care Team (Late st Contact Info) Description 05/18/2007 Outpatient Historical [facility] Ear, Nose and Throat 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
--- OUTSIDE RECORDS SUMMARY | 2025-03-06 21:36 | XMS_ITS | Encounter Summary ---
Author Organization [facility] Address [address] [place] [address] Care Team Providers Care Magneto Repairer Name Role Phone Aleks Musa MD Primary Care Provider Un available Encounter Details Date Type Department Care Team (Latest Contact Info) Description 02/18/2002 Outpatient Historical [facility] [address] [place] [phone] Aleks Musa MD NO ADDRESS ON FILE Routine child health exam (Primary Dx); SCREENING-CONTAMINAT ION NEC; SCREENING-IRON DEFIC ANEMIA Social History Tobacco Use Types Packs/Day Years Used Date Smoking Tobacco: Never Assessed Sex and Gender Information Value Date Recorded Sex Assigned at Not on file Legal Sex Male 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
--- OUTSIDE RECORDS SUMMARY | 2025-03-06 21:36 | XMS_ITS | Patient Health Record ---
Author Organization [facility] Address [address] [place] [address] Support Name Relationship Address Phone BECCA RO Guarantor Unknown [phone] Allergies Allergen (clinical drug ingredient) Drug/Non Drug Allergy documented on EMR Reaction Allergy Type Onset Date Status azithromycin Azithromycin , Drug Allergy A ctive cefprozil cefprozil , Drug Allergy Active mupirocin Mupirocin , Drug Allergy Active doxycycline Doxycycline , Drug Allergy Act brennan Reason For Referral No Information Social History Social History Additional Details Category Social Info Options Details zzMigrated Social History Migrated Social History Smoking Status:Never smoked tobacco (finding) Plan Of Treatment No Information
--- OUTSIDE RECORDS SUMMARY | 2025-03-06 21:36 | XMS_ITS | Encounter Summary ---
Author Organization [facility] Address [address] [place] [address] Care Team Providers Care Enterprise Systems Administrator Name Role Phone Aleks Musa MD Primary Care Provider Un available Encounter Details Date Type Department Care Team (Late st Contact Info) Description 05/24/2002 Outpatient Historical [facility] 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
--- OUTSIDE RECORDS SUMMARY | 2025-03-06 21:36 | XMS_ITS | Encounter Summary ---
Author Organization [facility] Address [address] [place] [address] Care Team Providers Care Qual Research Manager Name Role Phone Aleks Musa MD Primary Care Provider Un available Encounter Details Date Type Department Care Team (Latest Contact Info) Description 05/24/2005 Outpatient Historical [address] [phone] Aleks Musa MD NO ADDRESS ON FILE Infectious Colitis, Enteritis, and Gastroenteritis (Primary Dx) Social History Tobacco Use Types Packs/Day Years Used Date Smoking Tobacco: Never Assessed Sex and Gender Information Value Date Recorded Sex Assigned at Not on file Legal Sex Male 4:40 AM LIFESTYLE 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
--- OUTSIDE RECORDS SUMMARY | 2025-03-06 21:36 | XMS_ITS | Encounter Summary ---
Author Organization [facility] Address [address] [place] [address] Care Team Providers Care Wash Barrel Leader Name Role Phone Aleks Musa MD Primary Care Provider Un available Encounter Details Date Type Department Care Team (Latest Contact Info) Description 03/15/2002 Outpatient Historical [facility] [address] [place] [phone] Aleks Musa MD NO ADDRESS ON FILE ACUTE PHARYNGITIS (Primary Dx) Social History Tobacco Use Types Packs/Day Years Used Date Smoking Tobacco: Never Assessed Sex and Gender Information Value Date Recorded Sex Assigned at Not on file Legal Sex Male 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
--- OUTSIDE RECORDS SUMMARY | 2025-03-06 21:36 | XMS_ITS | Encounter Summary ---
Author Organization [facility] Address [address] [place] [address] Care Team Providers Care Serology Technician Name Role Phone Aleks Musa MD Primary Care Provider Un available Encounter Details Date Type Department Care Team (Late st Contact Info) Description 08/30/2002 Outpatient Historical [facility] [address] [place] [phone] Aleks Musa MD NO ADDRESS ON FILE Social History Tobacco Use Types Packs/Day Years Used Date Smoking Tobacco: Never Assessed Sex and Gender Information Value Date Recorded Sex Assigned at Not on file Legal Sex Male 4:40 AM PSYCHIATRIC ASSISTANT Gender Identity Not on file Sexual Orientation Not on file documented as of this encounter Plan of Treatment Not on file documented as of this encounter Visit Diagnoses Not on filedocumented in this encounter Care Teams Serology Technician Relationship Specialty Start Date End Date Aleks Musa MD NO ADDRESS ON FILE PCP - General 11/05/02 documented as of this encounter
--- OUTSIDE RECORDS SUMMARY | 2025-03-06 21:36 | XMS_ITS | Encounter Summary ---
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
--- OUTSIDE RECORDS SUMMARY | 2025-03-06 21:36 | XMS_ITS | Encounter Summary ---
Author Organization [facility] Address [address] [place] [address] Care Team Providers Care Customer Engineering Specialist Name Role Phone Aleks Musa MD Primary Care Provider Un available Encounter Details Date Type Department Care Team (Latest Contact Info) Description 11/01/2002 Outpatient Historical [facility] [address] [place] [phone] Aleks Musa MD NO ADDRESS ON FILE FAILURE TO THRIVE (Primary Dx) Social History Tobacco Use Types Packs/Day Years Used Date Smoking Tobacco: Never Assessed Sex and Gender Information Value Date Recorded Sex Assigned at Not on file 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
--- OUTSIDE RECORDS SUMMARY | 2025-03-06 21:36 | XMS_ITS | Clinical Summary ---
Author Organization [facility] Address [address] [facility] Attn: Epic Prelude ADT [place] [address] Care Team Providers Care Sludge Filtration Operator Name Role Phone Unavailable Primary Care Provider Unavailabl e Allergies Active Allergy Reactions Criticality Noted Date Comments Azithromycin Hives High 04/06/2009 Cefprozil Hives High 05/04/2009 Doxycycline Other (See Comments) 08/19/2014 Ulcers to inside stomach and esophagus, mouth Penicillin G Hives High 05/04/2009 Sulfa (Sulfonamide Antibiotics) Hives High 05/04/2009 Unclassified Drug Other (See Comments) 12/08/19 09 Ask mom to list. There are too many Medications citalopram (CeleXA) 20 mg tablet Take 20 mg by mouth daily at bedtime. Active omeprazole (PriLOSEC) 40 mg Capsule, Delayed Release(E.C.) Take 40 mg by mouth daily. 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 09/30/2015 Allergy to tetracycline 09/30/2015 FH: hypercholesterolemia 08/19/2014 Dysfunction of eustachian tube 02/08/2010 Resolved Problems Problem Noted Date Diagnosed Date Resolved Date Personal history of allergy to other antibiotic agent 04/06/2009 09/30/2015 Encounters Date Type Department Care Team Description 03/04/2025 External Device Data [facility] ABSTRACTION Provider, Abstract 03/04/2025 External Device Data [facility] ABSTRACTION Provider, Abstract from Last 3 Months Immunizations Immunization Administration Dates Next Due (ADACEL/BOOSTRIX)(10 [...] Brother Heart Disease Father High Cholesterol Father Colon Cancer Maternal Grandfather Relation Name Status Comments Brother Father Maternal Grandfather Social History Tobacco Use Types Packs/Day Years Used Date Smoking Tobacco: Never Smokeless Tobacco: Current Chew Alcohol Use Standard Drinks/Week Comments Yes 0 (1 standard drink = 0.6 oz pur e alcohol) occ Sex and Gender Information Value Date Recorded Sex Assigned at Not on file Legal Sex Male 9:24 AM SOFTWARE ENGINEER WEB SERVICES Gender Identity Not on file Sexual Orientation Not on file Last Filed Vital Signs Vital Sign Reading Time Taken Comments Blood Pressure 126/82 09/26/2024 9:45 AM CDT Pulse 65 09/26/2024 9:45 AM CDT Temperature 36.6 C (97.8 F) 11/19/2014 9:10 AM CDT Respiratory Rate 16 09/26/2024 9:45 AM CDT Oxygen Saturation 98% 09/26/2024 9:45 AM CDT Inhaled Oxygen Concentration - - Weight 68.9 kg (152 lb) 12/17/2024 11:36 AM CDT Height 167.6 cm (5' 6 ) 12/17/2024 11:36 AM CDT Body Mass Index 24.53 12/17/2024 11:36 AM CDT Plan of Treatment Upcoming Encounters Date Type Department Care Team (Latest Contact Info) Description 04/22/2025 9:00 AM SOFTWARE ENGINEER WEB SERVICES Hospital Encounter [facility] End[facility] [place] [address] [place] [address] Sarahy Escobar, DO [address] [facility] [address] [place] [address] 04/22/2025 9:00 AM SOFTWARE ENGINEER WEB SERVICES - 04/22/2025 9:20 AM SOFTWARE ENGINEER WEB SERVICES Surgery [facility] [place] [address] [place] [address] Sarahy Escobar, DO [address] [facility] [address] [place] [address] ESOPHAGOGASTRODUODENOSCOPY Scheduled Procedures Name Priority Associated Diagnoses Date/Ti me ESOPHAGOGASTRODUODENOSCOPY Heartburn Regurgitation of stomach contents 04/22/2025 9:00 AM SOFTWARE ENGINEER WEB SERVICES PH STUDY 48 HOUR Heartburn Regurgitation of stomach contents 04/22/2025 9:00 AM SOFTWARE ENGINEER WEB SERVICES Health Maintenance Due Date Last Done Comments DTAP/TDAP/TD VACCINES (7 - T d or Tdap) 09/27/2023 09/26/2013, 10/06/2006, 08/30/2002, Additional history exists INFLUENZA VACCINE (#1) 2024 1, 01/18/2008, 01/17/2007, Additional history exists HEPATITIS B VACCINES Completed 02/18/2002, 2001, 2001, Additional history exists HPV VACCINES Completed 09/30/2015, 04/2014, 09/26/2013 Goals Goal Patient Goal Type Associated Problems Recent Progress Patient-Stated? Author Autogenerat ed Goal Care Plan Autogenerated Problem No Aisha Engel Maxine Additional Health Concerns Active Problems Noted Date Diagnosed Date Autogenerated Problem 01/01/2025 Insurance [facility] [phone]
--- OUTSIDE RECORDS SUMMARY | 2025-03-06 21:36 | XMS_ITS | Encounter Summary ---
Author Organization [facility] Address [address] [place] [address] Care Team Providers Care Correctional Officer Chief Name Role Phone Aleks Musa MD Primary Care Provider Un available Encounter Details Date Type Department Care Team (Latest Contact Info) Description 03/25/2002 Outpatient Historical [facility] [address] [place] [phone] Aleks Musa MD NO ADDRESS ON FILE OTITIS MEDIA NOS (Primary Dx); LABORATORY EXAMINATION; PERS HX INFECT/PARASITIC DIS OTHR Social History Tobacco Use Types Packs/Day Years Used Date Smoking Tobacco: Never Assessed Sex and Gender Information Value Date Recorded Sex Assigned at Not on file Legal 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
--- OUTSIDE RECORDS SUMMARY | 2025-03-06 21:36 | XMS_ITS | Encounter Summary ---
Author Organization [facility] Address [address] [place] [address] Care Team Providers Care Application Development Specialist Name Role Phone Aleks Musa MD Primary Care Provider Un available Encounter Details Date Type Department Care Team (Latest Contact Info) Description 05/24/2002 Outpatient Historical [facility] Ear, Nose [facility] Throat 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
--- OUTSIDE RECORDS SUMMARY | 2025-03-06 21:36 | XMS_ITS | Encounter Summary ---
Author Organization [facility] Address [address] [place] [address] Care Team Providers Care Technician Submarine Cable Equipment Name Role Phone Aleks Musa MD Primary Care Provider Un available Encounter Details Date Type Department Care Team (Latest Contact Info) Description 06/03/[address] 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
--- OUTSIDE RECORDS SUMMARY | 2025-03-06 21:36 | XMS_ITS | Encounter Summary ---
Author Organization [facility] Address [address] [place] [address] Care Team Providers Care Process Automation Engineer Name Role Phone Aleks Musa MD Primary Care Provider Un available Encounter Details Date Type Department Care Team (Latest Contact Info) Description 2001 Outpatient Historical [facility] [address] [place] [phone] Aleks Musa MD NO ADDRESS ON FILE FOLLOW-UP EXAM NOS (Primary Dx) Social History Tobacco Use Types Packs/Day Years Used Date Smoking Tobacco: Never Assessed Sex and Gender Information Value Date Recorded Sex Assigned at Not on file Legal Sex Male 4:40 AM MANAGER RELIABILITY Gender Identity Not on file Sexual Orientation Not on file documented as of this encounter Plan of Treatment Not on file documented as of this encounter Visit Diagnoses Diagnosis Unspecified follow-up examination- Primary documented in this encounter Care Teams Process Automation Engineer Relationship Specialty Start Date End Date Aleks Musa MD NO ADDRESS ON FILE PCP - General 11/05/02 documented as of this encounter
--- OUTSIDE RECORDS SUMMARY | 2025-03-06 21:36 | XMS_ITS | Encounter Summary ---
Author Organization [facility] Address [address] [place] [address] Care Team Providers Care Arts Therapist Name Role Phone Aleks Musa MD Primary Care Provider Un available Encounter Details Date Type Department Care Team (Latest Contact Info) Description 03/16/2003 Outpatient Historical [facility] Ulysses Dominguez [facility] [place], [place] [phone] ACUTE PHARYNGITIS (Primary Dx); UNSPECIFIED VIRAL INFECTION Social History Tobacco Use Types Packs/Day Years Used Date Smoking Tobacco: Never Assessed Sex and Gender Information Value Date Recorded Sex Assigned at Not on file Legal Sex Male 4:40 AM 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
--- OUTSIDE RECORDS SUMMARY | 2025-03-06 21:36 | XMS_ITS | Encounter Summary ---
Author Organization [facility] Address [address] [place] [address] Care Team Providers Care Second Class Welder Name Role Phone Aleks Musa MD Primary Care Provider Un available Encounter Details Date Type Department Care Team (Late st Contact Info) Description 02/02/2007 Outpatient Historical [facility] Ear, Nose and Th[facility]at [address] [place] [address] [place] [address] [place] [phone] Social History Tobacco Use Types Packs/Day Years Used Date Smoking Tobacco: Never Assessed Sex and Gender Information Value Date Recorded Sex Assigned at Not on file Legal Sex Male 4:40 AM ACCOUNTS PAYABLE TECHNICIAN Gender Identity Not on file Sexual Orientation Not on file documented as of this encounter Plan of Treatment Not on file documented as of this encounter Visit Diagnoses Not on filedocumented in this encounter Care Teams Second Class Welder Relationship Specialty Start Date End Date Aleks Musa MD NO ADDRESS ON FILE PCP - General 11/05/02 documented as of this encounter
--- OUTSIDE RECORDS SUMMARY | 2025-03-06 21:36 | XMS_ITS | Encounter Summary ---
Author Organization [facility] Address [address] [place] [address] Care Team Providers Care Occupational Therapy Department Chair Name Role Phone Aleks Musa MD Primary Care Provider Un available Encounter Details Date Type Department Care Team (Late st Contact Info) Description 09/28/2014 Nurse Triage Report [id number] ABSTRACTION Colette Zuniga, RN Social History Tobacco Use Types Packs/Day Years Used Date Smoking Tobacco: Never Sex and Gender Information Value Date Recorded Sex Assigned at Not on file Legal Sex Male 4:40 AM SHOW DOG TRAINER Gender Identity Not on file Sexual Orientation Not on file documented as of this encounter Progress Notes * Colette Zuniga, LIO - 09/28/2014 11:36 AM CDT CHART DOCUMENTATION ONLY Call Type: Triage Call Presenting Problem: Mom, Av [place], He had a temperature of 103 Po and he has diarrhea. Report feedback to Dr. Musa. Associated Symptoms: Diarrhea; intermittent lower back pain on left; no nausea; poor appetite; T 98.6 oral at time of triage. Onset: 24 hours Location: Body Pain Assessment: 1 - 10 with 10 being the most severe pain None Treatment so far for current presenting problem: Ibuprofen; Fluids. History (Clinical Problems): None Medications: Zyrtec Medication reactions: Reviewed <<<<<<<< TRIAGE NOTE >>>>>>>> <<<<<<<< TRIAGE/OUTCOME >>>>>>>> Guideline Title: Diarrhea (Pediatric) Recommended Disposition: See Provider within 72 Hours Physician Contacted: No [1] Risk factors for bacterial diarrhea AND [2] diarrhea is mild ? YES documented in this encounter Plan of Treatment Not on file documented as of this encounter Visit Diagnoses Not on filedocumented in this encounter Care Teams Occupational Therapy Department Chair Relationship Specialty Start Date End Date Aleks Musa MD NO ADDRESS ON FILE PCP - General 11/05/02 documented as of this encounter
--- OUTSIDE RECORDS SUMMARY | 2025-03-06 21:36 | XMS_ITS | Encounter Summary ---
Author Organization [facility] Address [address] [place] [address] Care Team Providers Care Tool Machinist Name Role Phone Aleks Musa MD Primary Care Provider Un available Encounter Details Date Type Department Care Team (Latest Contact Info) Description 06/03/2002 Outpatient Historical [facility] Ear, Nose and Throat [address] [place] 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
--- OUTSIDE RECORDS SUMMARY | 2025-03-06 21:36 | XMS_ITS | Encounter Summary ---
Author Organization [facility] Address [address] [place] [address] Care Team Providers Care Business Services Vice President Name Role Phone Aleks Musa MD Primary Care Provider Un available Encounter Details Date Type Department Care Team (Latest Contact Info) Description 06/12/2002 Outpatient Historical [facility] [address] [place] [phone] Aleks Musa MD NO ADDRESS ON FILE NONINFEC GASTROENTERIT NEC (Primary Dx) Social History Tobacco Use Types Packs/Day Years Used Date Smoking Tobacco: Never Assessed Sex and Gender Information Value Date Recorded Sex Assigned at Not on file Legal Sex Male 4:40 AM TENDERIZER TENDER Gender Identity Not on file Sexual Orientation Not on file documented as of this encounter Plan of Treatment Not on file documented as of this encounter Visit Diagnoses Diagnosis Other and unspecified noninfectious gastroenteritis and colitis(558.9)- Primary Other and unspecified noninfectious gastroenteritis and colitis documented in this encounter Care Teams Business Services Vice President Relationship Specialty Start Date End Date Aleks Musa MD NO ADDRESS ON FILE PCP - General 11/05/02 documented as of this encounter
--- OUTSIDE RECORDS SUMMARY | 2025-03-06 21:36 | XMS_ITS | Encounter Summary ---
Author Organization [facility] Address [address] [place] [address] Care Team Providers Care Regional Operations Manager Name Role Phone Aleks Musa MD Primary Care Provider Un available Encounter Details Date Type Department Care Team (Latest Contact Info) Description 02/17/2003 Outpatient Historical [facility] [address] [place] [phone] Aleks Musa MD NO ADDRESS ON FILE Routine child health exam (Primary Dx) Social History Tobacco Use Types Packs/Day Years Used Date Smoking Tobacco: Never Assessed Sex and Gender Information Value Date Recorded Sex Assigned at Not on file Legal 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
--- OUTSIDE RECORDS SUMMARY | 2025-03-06 21:36 | XMS_ITS | Encounter Summary ---
Author Organization [facility] Address [address] [place] [address] Care Team Providers Care Code And Test Clerk Name Role Phone Aleks Musa MD Primary Care Provider Un available Encounter Details Date Type Department Care Team (Latest Contact Info) Description 08/06/2002 Outpatient Historical [facility] [address] [place] [phone] Aleks Musa MD NO ADDRESS ON FILE PNEUMONIA, ORGANISM NOS (Primary Dx) Social History Tobacco Use Types Packs/Day Years Used Date Smoking Tobacco: Never Assessed Sex and Gender Information Value Date Recorded Sex Assigned at Not on file Legal Sex Male 4:40 AM SEMICONDUCTOR DIES LOADER Gender Identity Not on file Sexual Orientation Not on file documented as of this encounter Plan of Treatment Not on file documented as of this encounter Visit Diagnoses Diagnosis Pneumonia, organism unspecified(486)- Primary Pneumonia, organism unspecified documented in this encounter Care Teams Code And Test Clerk Relationship Specialty Start Date End Date Aleks Musa MD NO ADDRESS ON FILE PCP - General 11/05/02 documented as of this encounter
--- OUTSIDE RECORDS SUMMARY | 2025-03-06 21:36 | XMS_ITS | Encounter Summary ---
Author Organization [facility] Address [address] [place] [address] Care Team Providers Care Data Warehouse Administrator Name Role Phone Aleks Musa MD Primary Care Provider Un available Encounter Details Date Type Department Care Team (Latest Contact Info) Description 12/09/2002 Outpatient Historical [facility] [address] [place] [phone] Aleks Musa MD NO ADDRESS ON FILE OTITIS MEDIA NOS (Primary Dx) Social History Tobacco Use Types Packs/Day Years Used Date Smoking Tobacco: Never Assessed Sex and Gender Information Value Date Recorded Sex Assigned at Not on file Legal Sex Male 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
--- OUTSIDE RECORDS SUMMARY | 2025-03-06 21:36 | XMS_ITS | Encounter Summary ---
Author Organization [facility] Address [address] [place] [address] Care Team Providers Care Chief Information Officer Name Role Phone Aleks Musa MD Primary Care Provider Un available Encounter Details Date Type Department Care Team (Latest Contact Info) Description 06/16/2002 Outpatient Historical [facility] KatarzynadottieUlysses [facility] [place], [place] [phone] HYPOVOLEMIA (Primary Dx); NONINFEC GASTROENTERIT NEC Social History Tobacco Use Types Packs/Day Years Used Date Smoking Tobacco: Never Assessed Sex and Gender Information Value Date Recorded Sex Assigned at Not on file Legal Sex Male 4:40 AM CLASSIFICATION ANALYST Gender Identity Not on file Sexual Orientation Not on file documented as of this encounter Plan of Treatment Not on file documented as of this encounter Visit Diagnoses Diagnosis Volume depletion- Primary Other and unspecified noninfectious gastroenteritis and colitis(558.9) Other and unspecified noninfectious gastroenteritis and colitis documented in this encounter Care Teams Chief Information Officer Relationship Specialty Start Date End Date Aleks Musa MD NO ADDRESS ON FILE PCP - General 11/05/02 documented as of this encounter
--- OUTSIDE RECORDS SUMMARY | 2025-03-06 21:36 | XMS_ITS | Encounter Summary ---
Author Organization [facility] Address [address] [place] [address] Care Team Providers Care United [place] Marshal Name Role Phone Aleks Musa MD Primary Care Provider Un available Encounter Details Date Type Department Care Team (Latest Contact Info) Description 02/11/2002 Outpatient Historical [facility] [address] [place] [phone] Aleks Musa MD NO ADDRESS ON FILE CROUP (Primary Dx); ACUTE SUPP OM W DRUM RUPT Social History Tobacco Use Types Packs/Day Years Used Date Smoking Tobacco: Never Assessed Sex and Gender Information Value Date Recorded Sex Assigned at Not on file Legal Sex Male 4:40 AM DIRECTOR OF REVENUE CYCLE MANAGEMENT Gender Identity Not on file Sexual Orientation Not on file documented as of this encounter Plan of Treatment Not on file documented as of this encounter Visit Diagnoses Diagnosis Croup- Primary Acute suppurative otitis media with spontaneous rupture of eardrum documented in this encounter Care Teams United [place] Marshal Relationship Specialty Start Date End Date Aleks Musa MD NO ADDRESS ON FILE PCP - General 11/05/02 documented as of this encounter
--- OUTSIDE RECORDS SUMMARY | 2025-03-06 21:36 | XMS_ITS | Encounter Summary ---
Author Organization [facility] Address [address] [place] [address] Care Team Providers Care Word Processing Operator Name Role Phone Aleks Musa MD Primary Care Provider Un available Encounter Details Date Type Department Care Team (Latest Contact Info) Description 09/16/2002 Outpatient Historical [facility] 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
--- OUTSIDE RECORDS SUMMARY | 2025-03-06 21:36 | XMS_ITS | Encounter Summary ---
Author Organization [facility] Address [address] [place] [address] Care Team Providers Care Otr Owner Operator Name Role Phone Aleks Musa MD Primary Care Provider Un available Encounter Details Date Type Department Care Team (Latest Contact Info) Description 06/18/2002 Outpatient Historical [facility] Ear, Nose and Throat 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
--- OUTSIDE RECORDS SUMMARY | 2025-03-06 21:36 | XMS_ITS | Encounter Summary ---
Author Organization [facility] Address [address] [place] [address] Care Team Providers Care Vamp Seamer Name Role Phone Aleks Musa MD Primary Care Provider Un available Encounter Details Date Type Department Care Team (Late st Contact Info) Description 04/27/2007 Outpatient Historical [facility] Nose [facility] Throat 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
--- OUTSIDE RECORDS SUMMARY | 2025-03-06 21:36 | XMS_ITS | Data Portability ---
Author Organization [facility] Greg Doty [facility] Marítnez Grant [facility] Address [address] [facility] [address] [place] [address] Assessment No assessment recorded. Plan of Treatment Reminders Order Date Submit Date Provider Last Modified By Organization Details Last Modified Time Details Appointments None recorded. Lab None recorded. Referral None recorded. Procedures None recorded. Surgeries None recorded. Imaging None recorded. Medication Orders polymyxin B sulfate 10,000 unit-trime thoprim 1 mg/mL eye drops [address] [facility], [address], [place], [address], 3 09:21:28 Patient TargetsNo targets recorded. Patient InstructionsNo instructions recorded. Reason for Referral None Reported. Problems Name Problem SNOMED Code Status Onset Date Resolution Date Notes Provider Name and Address Organization Details Recorded Time Tonsillect glenda Active 2012 Tonsillec markie; 3 4:02PM by Kimani Lazcano CMA, Office Visit; Promoted; acuity set as *; Not Available [facility] 3 03:11:07 History of adenoidect glenda 470698403 Active 2012 Adenoidec markie; 3 4:02PM by Kimani Lazcano CMA, Office Visit; Promoted; acuity set as *; [facility] Available [facility] 3 03:11:07 Open wound of scalp 332900813 Active 2012 OPEN WOUND OF SCALP; Recorded 3 4:02PM by Kimani Lazcano CMA, Office Visit; Promoted; acuity set as *; Not Available [facility] 3 03:11:07 Whooping cough NOS Active 2012 whooping cough ,encephal itis,with seizures; 3 4:02PM by Kimani Lazcano CMA, Office Visit; Promoted; acuity set as *; Not Available [facility] 3 03:11:07 Problem Notes None recorded. Medical Equipment None Reported. Allergies Allergen ID Allergen Name Allergen Category Reaction Reaction Severity Criticality Documentation Date Start Date Code Code System Note Provider Name and Address Organization Details Recorded Time 99956 penicilli n V potassium medicatio n Not available Not available Not available 10/15/202214099 5 RxNorm Comme nt: Recor ded 04/29 6:43P M by Carrie engel RN, Offic e Visit ; Promo sukhwinder; Signi ficgudelia ce: *; Reaso n: Drug aller gy; ; Not Available [facility] 3 02:23:53 15457 doxycycli ne hyclate medicatio n Not available Not available Not available 10/15/2022 64668 RxNorm Comme nt: Recor ded 04/29 6:43P M by Carrie engel RN, Offic e Visit ; Promo sukhwinder; Signi ficgudelia ce: *; Reaso n: Drug aller gy; ; Not Available [facility] 3 02:23:53 72657 erythromy sammi stearate medicatio n Not available Not available Not available 10/15/2022 96132 RxNorm Comme nt: Recor ded 04/29 6:43P M by Carrie engel RN, Offic e Visit ; Promo sukhwinder; Signi ficgudelia ce: *; Reaso n: Drug aller gy; ; Not Available [facility] 3 02:23:53 05916 sulfadiaz ine medicatio n Not available Not available Not available 10/15/2022 63753 RxNorm Comme nt: Recor ded 04/29 6:43P M by Carrie engel RN, Offic e Visit ; Promo sukhwinder; Signi ficgudelia ce: *; Reaso n: Drug aller gy; ; Not Available [facility] 3 02:23:53 3943 doxycycli ne Not available Not available Not available Not available 08/23/2022 3640 RxNorm [facility] 3 09:17:21 3944 Product containin g penicilli n (product) medicatio n Not available Not available Not available 08/23/2022 76755 8001 SNOMED [facility] 3 09:17:28 3945 cephalexi n medicatio n Not available Not available Not available 08/23/2022 2231 RxNorm [facility] 3 09:17:35 3946 erythromy sammi medicatio n Not available Not available Not available 08/23/2022 4053 RxNorm [facility] 3 09:17:44 3947 Substance with sulfonami de structure and antibacte rial mechanism of action (substanc e) medicatio n Not available Not available Not available 08/23/2022 10175 [facility] 3 09:17:51 3948 Zithromax medicatio n Not available Not available Not available 08/23/2022 [address] [facility] 3 09:17:57 Medications Name Sig Start Date Stop Date Status Note LastModified by Organization Details LastModified Time polymyxin B sulfate 10,000 unit-trime thoprim 1 mg/mL eye drops INSTILL 1 DROP INTO AFFECTED EYE(S) BY OPHTHALMI C ROUTE EVERY 6 HOURS FOR 7 DAYS 2022 active Not Available Not Available Not Avai lable escitalopr am 5 mg tablet TAKE 1 TABLET BY MOUTH EVERY DAY active Not Available Not Available No t Available ondansetro n every 8 hours as needed for vomiting 2022 active Recorded 3 6:50PM by RANJIT Mtz, Office Visit; Refill Quantity: 0; Not Available Not Available Not Available Vitals Date Recorded Body height Body mass index (BMI) Body weight Oxygen saturation Heart rate Body temperature Respiratory rate Systolic And Diastolic Provider Name and Address Organization Details Last Updated DateTime 3 170.18 cm 21.8 kg/m2 05273.3 4 g 98 % 65 /min 97.7 [degF] 20 /min 120/65 mm[Hg] JOAQUIN WOODS [facility] 3 09:16:57 Date Recorded Body height Body weight Oxygen saturation Heart rate Respiratory rate Body temperature Provider Name and Address Organization Details Last Updated DateTime 3 170.18 cm 10652.9 6 g 98 % 69 /min 18 /min 98.7 [degF] CARRIE SCHRADER [facility] 3 18:32:50 Social History None recorded. Functional Status None recorded. Mental Status None recorded. Family History Nothing Reported. Medical History No medical history recorded. Past Encounters Encounter ID Performer Location Encounter Start Date Encounter Closed Date Diagnosis/Indication Diagnosis SNOMED-CT Code Diagnosis ICD10 Code Diagnosis IMO Codes Diagnosis Note [id number] KRISTIN JIMENEZ [facility] [address] [place] [phone] 08/23/2022 09:06:37 08/23/2022 16:40:57 Acute conjunctivitis 78049083 H10.31 Start eye drops four times daily today. Encouraged good hand hygiene. Can use warm compresses for comfort. If worsening condition or no improvemen t in 5-7 days, return for further evaluation . If severe eye pain occurs, go to ED. [id number] KRISTIN JIMENEZ [facility] ([facility]) [address] [place] [address] 12/20/2022 18:16:47 12/20/2022 19:09:01 Abscess of skin and/or subcutaneous tissue 39379738 L02.91 Small abscess above left eye brow. Due to patients many allergies, will try warm epsom salt water soaks with a wash cloth three times daily and continued use of triple antibiotic ointment. Discussed with patient that if any signs of infection occur including fever, purulent drainage, or increased erythema, should return for further evaluation . Patient is agreeable to this plan of care. No visual disturbanc es today. Health Concerns Section Related Observation LastModified by Organization Detai ls LastModified Time None Recorded Concern Status LastModified by Organization Details LastModified Time None Recorded Advance Directives Directive None Recorded Payers Insurance Date Sequence Insurance Name Policy Number Policy Puga Covered Member ID Puga Member ID Guarantor Name 12/20/2022 1 [facility] (MEDICAID HMO) Simone Barney [id number] Av Barney 12/29/2022 [facility] (MEDICAID HMO) Simone Barney [id number] Av Barney Notes Date Note Type Note Provider Name and Address Organization Details Recorded Time 08/23/2022 text/html Red EyeReported by PatientHPIFor quality, patient reportsitchinganddull. For context, patient reportscontact lens wearerandseasonal allergies. For associated symptoms, patient reportsblurred vision,watery discharge from the eyes,mucopurulent discharge from the eyes, andeyelid edemabut reportsno headacheandno nausea/vomiting. For location, patient reportsright. For duration, patient reportsconstant. For onset/timing, patient reportsacute. For modifying factors, patient reportsnothing gives reliefandnothing makes it worse.ROS as noted in the HPI Devang Barney MD [address] [place] [address], [phone], [facility], .L.. 08/23/2022 09:27:37 12/20/2022 text/html Skin LesionRepor sukhwinder by PatientHPIFor location, patient reportsforehead (left eyebrow). For quality, patient reportspainful. For duration, patient reports4-5 days.ROS as noted in the HPI PATIENT REPORTS HE THINKS HE HAD A PIMPLE THAT HE MESSED WITH AND SQUEEZED A FEW DAYS AGO AND NOW IT IS VERY SWOLLEN AND SORE ON HIS LEFT FOREHEAD. PATIENT REPORTS HE IS ALLERGIC TO MOST ANTIBIOTICS AND WAS RECENTLY ON CLINDAMYCIN FOR SOMETHING ELSE. JUMA MITTAL [facility] [address] [place], [address], [facility] 12/20/2022 18:50:06
--- OUTSIDE RECORDS SUMMARY | 2025-03-06 21:36 | XMS_ITS | Encounter Summary ---
Author Organization [facility] Address [address] [place] [address] Care Team Providers Care Cashier Gambling Name Role Phone Aleks Musa MD Primary Care Provider Un available Encounter Details Date Type Department Care Team (Latest Contact Info) Description 06/01/2005 Outpatient Historical [facility] Ophthalmology 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
--- OUTSIDE RECORDS SUMMARY | 2025-03-06 21:36 | XMS_ITS | Encounter Summary ---
Author Organization [facility] Address [address] [place] [address] Care Team Providers Care Smutter Name Role Phone Aleks Musa MD Primary Care Provider Un available Encounter Details Date Type Department Care Team (Latest Contact Info) Description 06/15/2002 Outpatient Historical [facility] Ulysses Dominguez [facility] [place], [place] [phone] HYPOVOLEMIA (Primary Dx) Social History Tobacco Use Types Packs/Day Years Used Date Smoking Tobacco: Never Assessed Sex and Gender Information Value Date Recorded Sex Assigned at Not on file 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
--- OUTSIDE RECORDS SUMMARY | 2025-03-06 21:36 | XMS_ITS | Encounter Summary ---
Author Organization [facility] Address [address] [place] [address] Care Team Providers Care Nursery School Attendant Name Role Phone Unavailable Primary Care Provider [...] on file Legal Sex Male 9:24 AM BUSINESS DEVELOPMENT ASSISTANT Gender Identity Not on file Sexual Orientation Not on file documented as of this encounter Plan of Treatment Upcoming Encounters Date Type Department Care Team (Latest Contact Info) Description 04/22/2025 9:00 AM BUSINESS DEVELOPMENT ASSISTANT Hospital Encounter [facility] Endoscopy [place] [address] [place] [address] Sarahy Escobar DO [address] [facility] [address] [place] [address] 04/22/2025 9:00 AM BUSINESS DEVELOPMENT ASSISTANT - 04/22/2025 9:20 AM BUSINESS DEVELOPMENT ASSISTANT Surgery [facility] Endoscopy [place] [address] [place] [address] Lucy EstevezSarahy [address] [place] [address] ESOPHAGOGASTRODUODENOSCOPY Scheduled Procedures Name Priority Associated Diagnoses Date/Ti me ESOPHAGOGASTRODUODENOSCOPY Heartburn Regurgitation of stomach contents 04/22/2025 9:00 AM BUSINESS DEVELOPMENT ASSISTANT PH STUDY 48 HOUR Heartburn Regurgitation of stomach contents 04/22/2025 9:00 AM BUSINESS DEVELOPMENT ASSISTANT documented as of this encounter Goals Goal Patient Goal Type Associated Problems Recent Progress Patient-Stated? Author Autogenerat ed Goal Care Plan Autogenerated Problem No Aisha Engel documented as of this encounter Visit Diagnoses Not on filedocumented in this encounter Additional Health Concerns Active Problems Noted Date Diagnosed Date Autogenerated Problem 01/01/2025 documented as of this encounter
--- OUTSIDE RECORDS SUMMARY | 2025-03-06 21:36 | XMS_ITS | Encounter Summary ---
Author Organization [facility] Address [address] [place] [address] Care Team Providers Care Rail Track Layer Name Role Phone Aleks Musa MD Primary Care Provider Un available Encounter Details Date Type Department Care Team (Latest Contact Info) Description 01/27/2002 Outpatient Historical [facility] [place] [address] [place] [id number] Rosalinda Villarreal MD NO ADDRESS ON FILE COUGH (Primary Dx) Social History Tobacco Use Types Packs/Day Years Used Date Smoking Tobacco: Never Assessed Sex and Gender Information Value Date Recorded Sex Assigned at Not on file 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
--- OUTSIDE RECORDS SUMMARY | 2025-03-06 21:36 | XMS_ITS | Encounter Summary ---
Author Organization [facility] Address [address] [place] [address] Care Team Providers Care Tooth Clerk Name Role Phone Aleks Musa MD Primary Care Provider Un available Encounter Details Date Type Department Care Team (Latest Contact Info) Description 10/14/2002 Outpatient Historical [facility] 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
--- OUTSIDE RECORDS SUMMARY | 2025-03-06 21:36 | XMS_ITS | Encounter Summary ---
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
[2025-03-06] MEDS: tetracaine 0.5% Op Soln 4 mL Btl 1 DROP EYE-BOTH (22:05)
--- NOTE | 2025-03-06 22:17 | ED_ITS ---
HPI - Eye Problem 2 General: Chief complaint: Eye Problems Stated complaint: eye pain. something in it Time Seen by Provider: 03/06/25 21:57 History of Present Illness: Patient noted some eye irritation just before he left work. He was power spraying at work today. He did not note anything that got into his eye physically. This worsened over the course of the evening. Self-care: Patient's attempted to flush his right eye. Associated symptoms: Denies fever(s), headache(s), nausea, neck pain or vomiting Related Data Previous Rx's ?Medication ?Instructions ?Recorded omeprazole 20 mg capsule,delayed 20 mg PO DAILY #30 ca ps 03/22/24 release ofloxacin 0.3 % eye drops 1 drp ophthalmic (eye) QID 5 days 08/05/24 #10 mL citalopram 40 mg tablet See Rx Instructions .Route 1 05/06/24 .COMPLEX #30 tabs ondansetron 4 mg disintegrating 4 mg PO Q6H PRN nausea and 03/05/25 tablet vomiting #20 tabs Allergies Allergy/AdvReac Type Severity Reaction Status Date / Time Penicillins Allergy Intermediate ALGY-Anaphy Verified 03/06/25 21:30 laxis azithromycin (From Zithromax Allergy Unknown Unknown Verified 03/06/25 21:30 Z-Chencho) doxycycline Allergy Unknown Unknown Verified 03/06/25 21:30 Sulfa (Sulfonamide Allergy Unknown Unknown Verified 03/06/25 21:30 Antibiotics) cefprozil (From Cefzil) Allergy Unknown Verified 03/06/25 21:30 mupirocin (From Bactroban) Allergy Unknown Verified 03/06/25 21:30 Review of Systems 2 General: Reports: 10 or more systems reviewed and unremarkable except in HPI and below Const: Denies: fever(s), chills or change in weight Eyes: Reports: change in vision, photophobia, eye discomfort, eye discharge, eye redness and increased production of tears Card: Denies: chest pain, palpitations, irregular heart rhythm, edema, swelling of feet/ankles or dyspnea on exertion Resp: Denies: dyspnea or wheezing GI: Denies: abdominal pain, nausea, vomiting, hematemesis, heartburn, diarrhea, constipation, bloating, fecal incontinence, pain on defecation, rectal pain, hematochezia or melena : Denies: flank pain, dysuria, urinary frequency, urinary urgency or urinary hesitancy Musc: Denies: neck pain, back pain, extremity pain or extremity swelling Skin/Breast: Denies: rash, pruritus, erythema, sores or new lesions Neuro: Denies: headache(s), numbness in extremities, weakness in extremities, lack of coordination or difficulty walking Psych: Denies: anxiety, depression, visual hallucinations, auditory hallucinations, suicidal ideation or homicidal ideation PFSH ED 2 PFSH: Medical History (Updated 03/06/25 @ 22:25 by BRIANA Chahal) Numerous moles Acid reflux Anxiety Social History Smoking and tobacco/nicotine status: never used tobacco/nicotine Physical Exam 2 Const: COMMON NORMALS: no acute distress, average body habitus, patient oriented x3, no limitations, healthy appearing, alert and well nourished HENMT: COMMON NORMALS: normocephalic and hearing grossly normal bilaterally HEAD & SCALP: normocephalic Eye: COMMON NORMALS: Equal, round and reactive pupils present and EOMs intact bilaterally GENERAL EYE: normal light reflex VISUAL ACUITY: Yes acuity normal EYELID: eyelids normal CONJUNCTIVA: Yes conjunctival abnormal positive right discharge SCLERA: scleral abnormal Laterality of scleral abnormality: positive right PUPIL: Yes Equal, round and reactive pupils present DIRECT OPHTHALMOSCOPY: Yes normal light reflex SLIT LAMP EXAM: Yes slit lamp exam performed with fluorescein and Yes conjunctiva/sclera EYE IMAGES: 1. Ulceration 2. Ulceration Neck/C-Spine: COMMON NORMALS: full ROM, no JVD, Thyroid normal and No carotid bruits THYROID: Thyroid normal Lymph: LYMPHATIC: no lymphadenopathy noted, no lymphedema noted, lymphedema and lymphadenopathy Resp: COMMON NORMALS: normal respiratory effort, No retractions, No use of accessory muscles and clear to auscultation bilaterally EFFORT & INSPECTION: Yes able to speak in complete sentences and Yes symmetric chest movement A USCULTATION: clear to auscultation bilaterally Cardio: COMMON NORMALS: no JVD, regular rate, regular rhythm, S1 normal heart sound present, S2 normal heart sound present, No gallops present (Cardio), No clicks present (Cardio), No murmurs present (Cardio), No rub (Cardio) and Peripheral pulses 2+ throughout RATE: regular rate RHYTHM: regular rhythm HEART SOUNDS: S1 normal heart sound present and S2 normal heart sound present PERIPHERAL PULSES: Peripheral pulses 2+ throughout GI: COMMON NORMALS: Normal to inspection, nondistended, normoactive bowel sounds present, Soft to palpation, non-tender, No hepatosplenomegaly present, no masses and no bruits PALPATION: Yes Soft to palpation and Yes No hepatosplenomegaly present : COMMON NORMALS: Yes no CVA tenderness BLADDER/KIDNEY EXAM: Yes no CVA tenderness Back/Pelvis: COMMON NORMALS: no CVA tenderness and thoracic and lumbar spine normal to inspection Extremity: COMMON NORMALS: normal to inspection, full ROM, capillary refill normal, no clubbing, cyanosis or edema and no pedal edema Neuro: COMMON NORMALS: patient oriented x3, moves all extremities, no sensory deficits noted and gait normal SENSORIUM/ORIENTATION: Yes alert Psych: COMMON NORMALS: mental status grossly normal, Normal thought process present, cooperative, speech normal, denies homicidal ideation and denies suicidal ideation SPEECH: Yes normal speech THOUGHT PROCESS: Normal thought process present Course 2 Vital Signs: Vital signs: Vital Signs Temperature 97.8 F 03/06/25 21:25 Pulse Rate 68 03/06/25 21:25 Respiratory Rate 16 03/06/25 21:25 Blood Pressure 132/81 03/06/25 21:25 Pulse Oximetry 100 03/06/25 21:25 Oxygen Delivery Me thod Room Air 03/06/25 21:25 MDM - Eye Problem Medical Decision Making Patient is a 25-year-old gentleman that presents with eye discomfort to his right eye after work, after power washing. He is unsure that he got something in his eye, works at the [employer], and was power washing today. This was noted at the end of his workday, and worsened throughout the night. His attempted to wash his eye out. He continued to have pain. On Jerome lamp exam after fluorescein stain, he had a scleral ulceration most likely from scratching/irritant. Ofloxacin was applied, and sent home with patient. All of his questions were addressed. Medical Records I reviewed the patient's medical records. No radiology studies performed this visit Discharge Plan Discharge Patient Disposition: Home Clinical Impression: Corneal abrasion Qualifiers: Encounter type: initial encounter Laterality: right Qualified Code(s): S05.01XA - Injury of conjunctiva and corneal abrasion without foreign body, right eye, initial encounter Condition: Stable Prescriptions: No Action omeprazole 20 mg capsule,delayed release(DR/EC) 20 mg PO DAILY Qty: 30 11RF ofloxacin 0.3 % drops 1 drp ophthalmic (eye) QID 5 Days Qty: 10 0RF citalopram 40 mg tablet See Rx Instructions .ROUTE .COMPLEX Qty: 30 4RF Dose Instruction: Take 1 tablet by mouth once daily Rx Instructions: Take 1 tablet by mouth once daily ondansetron 4 mg tablet,disintegrating 4 mg PO Q6H PRN (Reason: nausea and vomiting) Qty: 20 0RF Discharge Orders: Discharge ED (Routine); Ordered 03/06/25 Ordered By: Yokasta Fagan Referrals: Gabbie Lentz NP [Primary Care Provider, Family Practice] Discharge Diet: Usual diet Discharge Activity: Resume usual activity Patient Instructions: Corneal Abrasion (ED), Patient Portal & Matheus Instructions Activity Restrictions/Additional Instructions: - Apply your ofloxacin antibiotic drops to your right eye every 2 hours while awake initially until the pain is controlled. - You may flush this eye out - Return to ED with worsening pain, change in your vision, fever greater than 100.4. -It is wonderful to meet you and your , and I am looking forward to working with your in March Thank you for choosing [facility] for your healthcare needs today. You have been screened and evaluated and felt safe for discharge. Health conditions do change or evolve sometimes and as such it is important that you follow up with your Primary Doctor to be re checked, 3-5 days is a general good time frame for follow up. You are always welcome to return to the ED for re assessment if your symptoms are worsening or you have new concerns Print Language: Faroese Coding Level of Care Code ED Sinter Feeder for Daxa Zimmer
== END 2025-03-06 22:36 | disposition home or self-care (01) ==
PROVIDERS: Emergency Provider Physician Assistant
DX: S05.01XA Injury of conjunctiva and corneal abrasion without foreign body, right eye, initial encounter (principal); X58.XXXA Exposure to other specified factors, initial encounter
CPT/HCPCS: 99283; J9999